=== PATIENT | female | born 1960 | race Asian ===

== ENCOUNTER 2023-08-14 10:28 | Day surgery (SDC) | payer OTHER ==
[~2023-08-14] VITALS: Ht 154.9 cm; Wt 49.0 kg
[2023-08-14] MEDS ORDERED: MIDAZOLAM 2 MG/2 ML VIAL ONE (12:50)
[2023-08-14] MEDS ORDERED: fentaNYL citrate 0.05 MG/ML VIAL ONE (12:50)
[2023-08-14] MEDS ORDERED: LIDOCAINE 2% 100 MG/5 ML UJET TP ONE (12:51)
== END 2023-08-14 14:03 | disposition home or self-care (01) ==
LOC: MDS 10:28 → MMU 11:55 → MDS 14:03
PROVIDERS: ATTEND Internal Medicine Gastroenterology
DX: Z12.11 Encounter for screening for malignant neoplasm of colon (principal); K64.4 Residual hemorrhoidal skin tags; F17.210 Nicotine dependence, cigarettes, uncomplicated
CPT/HCPCS: 45378; J3010; J7030; J2250